=== PATIENT | female | born 1950 | race African-American/Black ===

== ENCOUNTER 2021-05-26 17:35 | Emergency (ER) | payer OTHER, MEDICARE ==
[~2021-05-26] VITALS: Ht 172.7 cm; Wt 83.9 kg
[2021-05-26] MEDS ORDERED: METFORMIN HCL500 M3 PO (17:45)
[2021-05-26] MEDS ORDERED: LEVO-T25 MCG PO (17:46)
[2021-05-26] MEDS ORDERED: HUMALOG KW200 UNIT/1 (17:46)
[2021-05-26] MEDS ORDERED: ASA81BEC PO (17:47)
[2021-05-26] MEDS ORDERED: COZAAR 25 MG TA25 M1 PO (17:47)
[2021-05-27] MEDS ORDERED: TORADOL 10 MG T10 MG PO (00:22)
[2021-05-27] MEDS ORDERED: NORFLEX100 MG PO (00:23)
[2021-05-27 00:31] VITALS: BP 150/60
== END 2021-05-27 00:32 | disposition home or self-care (01) ==
LOC: M.ERS 17:35
DX: S13.4XXA Sprain of ligaments of cervical spine, initial encounter (principal); M79.18 Myalgia, other site; E11.9 Type 2 diabetes mellitus without complications; Z79.899 Other long term (current) drug therapy; Z91.018 Allergy to other foods; V89.2XXA Person injured in unspecified motor-vehicle accident, traffic, initial encounter; Y93.89 Activity, other specified; Y92.89 Other specified places as the place of occurrence of the external cause; Y99.8 Other external cause status